=== PATIENT | female | born 1980 | race Caucasian/White ===

== ENCOUNTER 2016-10-25 10:27 | Observation (INO) | payer MEDICAID ==
[2016-10-25] MEDS ORDERED: PHENAZOPYRIDINE HCL 200 MG TAB PO ONE (11:12)
[2016-10-25] MEDS ORDERED: ceFAZolin 2 GM/DEXTROSE 100 ML IV ONE (11:12)
[2016-10-25] MEDS ORDERED: LIDOCAINE 1% 2 ML INJ ID PRN (12:46)
[2016-10-25] MEDS ORDERED: LR 1,000 ML IV ONE (12:46)
[2016-10-25] MEDS ORDERED: BUPIVACAINE/EPI 0.5% 30 ML SDV ONE ×2 (14:44→15:18)
--- NOTE | 2016-10-25 15:13 | PDGENHP ---
History and Physical History and Physical: Assessment and Plan: 1. Dysmenorrhea Julianne's symptoms are highly suggestive of endometriosis. We reviewed all conservative and surgical options. She is not able to tolerate hormonal manipulation. As a result she is requesting surgical intervention. She and her never desire children. As a result she will be scheduled for robotic excision of endometriosis with likely hysterectomy. I will evaluate her upper abdomen and diaphragms given her right-sided cyclic shoulder pain for diaphragmatic endometriosis which will be excised as well. I also will excise all bowel lesions given her significant bowel symptoms. 2. Dyspareunia, female 3. Dyschezia 4. Menorrhagia with regular cycle 5. Endometriosis of pelvis Subjective: Patient ID: Julianne Garcia is a 36 y.o. female who [facility] to [facility] for pelvic pain. HERB Whitaker presents with her to discuss pelvic pain. She is a 36-year-old para 0 woman. She has a long history of dysmenorrhea and dyspareunia. Her cycles are slightly irregular, from 23-40 days. She has a heavy flow having to change a menstrual cup or large tampon every 1-2 hours. She develops severe cramping just before starting her menses. It is in the mid abdomen and pelvis and radiates down her anterior thighs and rectum. She describes it as a severe cramping sensation that comes and goes in waves with a stabbing sensation as well. It has slowly worsened over time. She has lost several jobs due to her need to stay home secondary to pain. Additionally she has constipation several days before starting her menses then it switches to diarrhea with her menses. Finally she notes right sided shoulder and upper arm pain which typically occurs midcycle in a cyclic fashion. She also has dyschezia but not every time. She has tried multiple control pills which causes her to feel "crazy ". Currently she was on a progesterone only pill which she also did not tolerate. She went to the resident gynecology clinic last year. They attempted to place a Mirena IUD without success. She lives in [place]. She recently saw a doctor Joon Escalante who had initially scheduled her for laparoscopy in June. PastMedicalHistory Past Medical History: Diagnosis Date Anxiety Pelvic pain in female Premenstrual dysphoric disorder PastSurgicalHistory Past Surgical History: Procedure Laterality Date BREAST SURGERY Left Cyst removal CYST REMOVAL 2006 Axilla cyst SINUS SURGERY 2008 TYMPANOSTOMY TUBE PLACEMENT As a child CURRENT MEDICATIONS: Current Outpatient Prescriptions Medication Sig ASCORBATE CALCIUM (VITAMIN C PO) CALCIUM PO CHOLECALCIFEROL, VITAMIN D3, (VITAMIN D3 PO) DOCOSAHEXANOIC ACID/EPA (FISH OIL PO) FLUoxetine (PROZAC) 20 mg capsule Take 1 capsule by mouth daily for Anxiety with Depression. LACTOBACILLUS ACIDOPHILUS (PROBIOTIC PO) ryley, bulk, Powd MAGNESIUM GLYCINATE PO SAW PALMETTO XTR/ZINC PICOLIN (SAW PALMETTO EXTRACT PO) UNABLE TO FIND Med Name: Vitex Fruit VITAMIN B COMPLEX (STRESS B PO) Current Facility-Administered Medications Medication Dose Route Frequency Provider Last Rate Last Dose levonorgestrel (MIRENA) 20 mcg/24 hr (5 years) IUD 20 mcg 1 each Intrauterine Device Cecilia Whiting MD ALLERGIES: Tetracycline and Minocycline I have reviewed, verified and agree with the past medical, surgical, , family, social and ROS history as documented by the RN today. Review of Systems Objective: Vital Signs: Visit Vitals BP 120/66 Pulse 61 Temp 36.6 C (97.8 F) (Temporal Artery) Resp 14 Ht 1.664 m (5' 5.5") Wt 65.4 kg (144 lb 3.2 oz) SpO2 99% BMI 23.63 kg/m2 Physical Exam DATA: I have reviewed patient's outside medical records. Summary findings include as noted above. TIME/COMMUNICATION: I personally spent a total of 60 minutes. Of that 45 minutes was counseling/ coordination of patient's care. See my note above for details. Odilon Costa MD Board Certified Female Pelvic Medicine and Reconstructive Surgery Director of Minimally Invasive Gynecologic Surgery, [facility] Minimally Invasive Gynecologic Surgery Designee
--- NOTE | 2016-10-25 15:20 | PDANEPAE ---
ANE Past Medical History - Cardiovascular History Hx Hypertension: No Hx Arrhythmias: No Hx Chest Pain: No Hx Coronary Artery / Peripheral Vascular Disease: No Hx CHF / Valvular Disease: No Hx Palpitations: No - Pulmonary History Hx COPD: No Hx Asthma/Reactive Airway Disease: No Hx Recent Upper Respiratory Infection: No Hx Oxygen in Use at Home: No Hx Sleep Apnea: No Sleep Apnea Screening Result - Last Documented: Negative - Neurologic History Hx Cerebrovascular Accident: No Hx Seizures: No Hx Dementia: No - Endocrine History Hx Diabetes: No Endocrine History Comment: BORDERLINE HYPOTHYROID - Renal History Hx Renal Disorders: No - Liver History Hx Hepatic Disorders: No - Neurological & Psychiatric Hx Hx Neurological and Psychiatric Disorders: Yes Neurological / Psychiatric History Comment: ANXIETY - Cancer History Hx Cancer: No - Congenital Disorder History Hx Congenital Disorders: No - GI History Hx Gastrointestinal Disorders: No - Other Health History Other Health History: SEVERE PELVIC DISCOMFORT WITH MENSES - Chronic Pain History Chronic Pain: Yes (PELVIC REGION WITH MENSES) - Surgical History Prior Surgeries: REMVL CYST LT UNDER ARM. SINUS 2009 ANE Review of Systems - Exercise capacity METS (RN): 5 METS ANE Patient History - Allergies Allergies/Adverse Reactions: aspirin Allergy (Verified 09/28/16 12:00) GI ISSUES minocycline Allergy (Verified 09/28/16 12:00) Hives - Home Medications Home Medications: Calcium [HI-CHERY] 1,200 mg PO DAILY 09/28/16 [Last Taken 10/21/16] Cholecalciferol Vit D3 [Vitamin D3 (*)] 5,000 units PO MOWEFR 09/28/16 [Last Taken 10/21/16] FLUoxetine [Prozac 20 MG (*)] 20 mg PO Q2D 09/28/16 [Last Taken 10/25/16 07:30] Magnesium Oxide [Magnesium] 400 mg PO DAILY 09/28/16 [Last Taken 10/21/16] Vitamin B Complex [B Complex] 1 each PO DAILY 09/28/16 [Last Taken 10/21/16] - NPO status NPO Since - Liquids (Date): 10/25/16 NPO Since - Liquids (Time): 08:00 NPO Since - Solids (Date): 10/24/16 NPO Since - Solids (Time): 21:00 - Smoking Hx Smoking Status: Never smoked ANE Labs/Vital Signs - Vital Signs Blood Pressure: 106/73 Heart Rate: 63 Respiratory Rate: 14 O2 Sat (%): 99 Height: 167.64 cm Weight: 63.503 kg ANE Physical Exam - Airway Mallampati Score: Class 2 - ASA Status ASA Status: II ANE Anesthesia Plan Anesthesia Plan: general endotracheal anesthesia
[2016-10-25] MEDS ORDERED: MIDAZOLAM 2 MG/2 ML VIAL ONE (15:22)
[2016-10-25] MEDS ORDERED: PROPOFOL 200 MG/20 ML VIAL ONE (15:23)
[2016-10-25] MEDS ORDERED: fentaNYL 100 MCG/2 ML INJ ONE ×3 (15:23→18:12)
[2016-10-25] MEDS ORDERED: ONDANSETRON 4 MG/2 ML VIAL ONE ×2 (15:28→17:58)
[2016-10-25] MEDS ORDERED: METOCLOPRAMIDE 10 MG/2 ML VIAL ONE (15:28)
[2016-10-25] MEDS ORDERED: ROCURONIUM 50 MG/5 ML VIAL ONE (15:28)
[2016-10-25] MEDS ORDERED: SUGAMMADEX SODIUM 200 MG/2 ML VIAL IVP ONE (17:12)
[2016-10-25] MEDS ORDERED: ZOLPIDEM TARTRATE 5 MG TAB PO PRN (17:28)
[2016-10-25] MEDS ORDERED: HYDROCODONE/APAP 5/325 TAB PO PRN (17:28)
[2016-10-25] MEDS ORDERED: PROMETHAZINE HCL 25 MG/ML INJ IVP PRN ×2 (17:28→17:39)
[2016-10-25] MEDS ORDERED: OXYCODONE/APAP 5/325 TAB PO PRN (17:28)
[2016-10-25] MEDS ORDERED: DIAZEPAM 10 MG/2 ML SYR IVP PRN (17:28)
[2016-10-25] MEDS ORDERED: ONDANSETRON 4 MG/2 ML VIAL IVP PRN (17:28)
[2016-10-25] MEDS ORDERED: HYDROmorphONE/DILAUDID 1 MG/ML SYR IVP PRN (17:28)
[2016-10-25] MEDS ORDERED: LR 1,000 ML IV SCH (17:30)
--- NOTE | 2016-10-25 17:35 | POSTOPPROG ---
Post Op Note Date of Operation: 10/25/16 Surgeon: Odilon Costa Regional Marketing Director: Judy Burkett Anesthesiologist: Jonna Anesthesia: GET(General Endotracheal) Pre-op Diagnosis: Endometriosis Post-op Diagnosis: Same Procedure: Robotic hyst, BSO, excision of endo, bilat ureterolysis, cysto Findings: Endo Inf/Abcess present in the surg proc area at time of surgery?: No Depth: Superfical (Skin SQ) EBL: Minimal Complications: None
[2016-10-25] MEDS ORDERED: NALOXONE HCL 0.4 MG/ML INJ IVP PRN (17:39)
[2016-10-25] MEDS ORDERED: fentaNYL 100 MCG/2 ML INJ IVP PRN ×2 (17:39)
[2016-10-25] MEDS ORDERED: LR 500 ML IV PRN (17:39)
--- NOTE | 2016-10-25 17:41 | POSTANESTH ---
Post Anesthetic Evaluation Cardiovascular Status: Normal, Stable Respiratory Status: Normal, Stable Level of Consciousness/Mental Status: Can Participate in Eval Pain Control: Adequate, Prn Tx Ordered Nausea/Vomiting Control: Adequate, Prn Tx Ordered Complications Possibly Related to Anesthesia: None Noted
--- NOTE | 2016-10-25 21:46 | GOP ---
[f rep st] OPERATIVE REPORT DATE OF OPERATION: 10/25/2016 SURGEON: Odilon Costa MD PERSONAL SERVICE REPRESENTATIVE: Judy Burkett CFA ANESTHESIA: General. PREOPERATIVE DIAGNOSIS: 1. Dysmenorrhea. 2. Menorrhagia. 3. Pelvic pain. 4. Probable endometriosis. 5. Dyschezia. 6. Urinary frequency. 7. Cyclic chest pain. 8. Uterine prolapse. POSTOPERATIVE DIAGNOSIS: 1. Dysmenorrhea. 2. Menorrhagia. 3. Pelvic pain. 4. Probable endometriosis. 5. Dyschezia. 6. Urinary frequency. 7. Cyclic chest pain. 8. Uterine prolapse. 9. Extensive endometriosis. PROCEDURE PERFORMED: FINDINGS: SPECIMENS: Uterus, bilateral tubes, and ovaries, pelvic peritoneum with endometriosis, rectal lesio ns. ESTIMATED BLOOD LOSS: Less than 25 mL. DESCRIPTION OF PROCEDURE: The patient was taken to the operating room. She was identified. Genera l anesthesia was administered and found to be adequate. She was placed in the lithotomy position an d prepared and draped in normal sterile fashion. A Yooliare uterine manipulator was placed into the en dometrial cavity and sutured to the cervix. A Weaver catheter was then placed. A 1 cm intra umbilical incision was made with a scalpel. The Veress needle with CO2 gas line was ad vanced into the peritoneal cavity. The abdomen was then insufflated with carbon dioxide gas. The 1 2 mm trocar followed by the laparoscope were then inserted. The upper abdomen was examined. There were several lesions on the right diaphragm which were concerning for endometriosis. They were very small. I chose to fulgurate them rather than excised them. This was accomplished with the monopol ar scissors. 2 lateral ports were placed on the right and 1 left under direct visualization. The p atient was then placed in Trendelenburg position and the da Tammy robot docked on the left side. Th e instruments were then brought into the abdominal cavity under direct visualization. The patient h ad extensive endometriosis in the posterior cul-de-sac, bilateral ovarian fossa, and distal rectum. She also had extensive endometriosis on the lower uterine segment and posterior cervix. She had 2 areas in the anterior cul-de-sac, 1 on either side. She also lesions on the ovaries. I first excis ed the lesions on the distal rectum. They extended approximately half way through the muscularis. The entire posterior cul-de-sac peritoneum was excised from the distal rectum extending up over the cervix and laterally out to the uterosacral ligaments. Because of the endometriosis in the ovarian fossae overlying the ureters, a bilateral ureterolysis was required. The peritoneum at the pelvic b rims were incised. The ureters were gently dissected free. The ureters were lateralized and separa otto off the overlying peritoneum endometriosis all the way down to the bladder bilaterally. Once th is was accomplished, the entire ovarian fossa peritoneum was completely excised. The left round ligament was divided. The anterior leaf of the broad ligament was incised to the bif urcation of the left common iliac vessels. The infundibulopelvic vessels were then cauterized and t ransected. The anterior leaf of the broad ligament was incised over the left uterine vessels and ac ross the upper vagina to excise the anterior cul-de-sac peritoneum endometriosis. The left uterine vasculature was then cauterized and transected medial to the already dissected out left ureter. The exact same procedure was performed on the patient's right side. A circumferential colpotomy incisi on was then made with the hot reina and all specimens were removed through the vagina. The vagina was closed with a running 0 V-Loc 180 suture. A bilateral uterosacral ligament colpopexy was perfor med by attaching the lateral aspect of the vaginal cuff to the ipsilateral uterosacral ligaments yuriy r their insertion into the coccygeus-sacrospinous ligament complexes. The pelvis was then copiously irrigated with sterile saline and hemostasis was present. The robot was then undocked. The fascia was closed with 0 Vicryl, skin with 4-0 Monocryl and surgical adhesive. Cystoscopy was then performed. Both ureters had vigorous jets of urine. There was no evidence of b ladder or urethral injury seen. The patient did have 3 small Hunner's ulcers explaining her urinary frequency symptoms. Anesthesia was reversed. The patient was taken the PACU, awake, and in stable condition. PROCEDURES: 1. Robotic-assisted total laparoscopic hysterectomy, bilateral salpingo-oophorectomy. 2. Robotic excision of extensive endometriosis. 3. Bilateral ureterolysis. 4. Excision of several rectal lesions. 5. Fulguration of diaphragm lesions. 6. Bilateral uterosacral ligament colpopexy. 7. Cystoscopy. COMPLICATIONS: None. DISPOSITION: Patient stable to PACU. /[id number]/MODL
[2016-10-25] MEDS: SIMETHICONE 80 MG TAB CHEW PO SCH ×2 (22:08→22:41)
[2016-10-25] MEDS: DOCUSATE SODIUM 100 MG CAP PO SCH (22:08)
[2016-10-25] MEDS: KETOROLAC 30 MG/1 ML SDV IVP SCH (23:29)
[2016-10-25] MEDS ORDERED: ACETAMINOPHEN 325 MG TAB PO PRN (23:52)
[2016-10-26] MEDS: KETOROLAC 30 MG/1 ML SDV IVP SCH ×2 (05:32→10:37)
[2016-10-26 06:00] LABS: % IMMATURE GRANULYOCYTES 0.4 % (0.0-1.1); ABSOLUTE IMMATURE GRANULOCYTES 0.04 10^3/uL (0.00-0.10); ADD DIFF? NO; ADD MORPH? NO; ADD SCAN? NO; ATYPICAL LYMPHOCYTE FLAG 0 (0-99); FRAGMENT RBC FLAG 0 (0-99); HEMATOCRIT 32.6 % (38.0-47.0); HEMOGLOBIN 10.8 g/dL (12.6-16.3); LEFT SHIFT FLG 0 (0-99); LIPEMIA HEMOLYSIS FLAG 80 (0-99); MEAN CELL HEMOGLOBIN 32.1 pg (27.9-34.1); MEAN CELL HEMOGLOBIN CONCENTR. 33.1 g/dL (32.4-36.7); MEAN PLATELET VOLUME 10.3 fL (8.7-11.7); PLATELET CLUMPS FLAG 0 (0-99); PLATELET COUNT 165 10^3/uL (150-400); RED BLOOD CELL COUNT 3.36 10^6/uL (4.18-5.33); RED CELL DISTRIBUTION WIDTH 12.6 % (11.5-15.2)
[2016-10-26 08:38] VITALS: BP 97/52; PULSE 75; RESP 17; TEMP 97.7; O2SAT 96
[2016-10-26] MEDS ORDERED: MAGNESIUM OXIDE 400 MG TAB PO SCH (09:00)
[2016-10-26] MEDS: DOCUSATE SODIUM 100 MG CAP PO SCH (10:32)
[2016-10-26] MEDS: SIMETHICONE 80 MG TAB CHEW PO SCH (10:32)
--- NOTE | 2016-10-26 19:01 | GDS ---
[f rep st] DISCHARGE SUMMARY DISCHARGE DIAGNOSIS: 1. Dysmenorrhea. 2. Dyspareunia. 3. Pelvic pain. 4. Endometriosis. PROCEDURES PERFORMED: 1. Robotic-assisted total laparoscopic hysterectomy, bilateral salpingo-oophorectomy. 2. Robotic excision of extensive endometriosis. 3. Bilateral ureterolysis. 4. Excision of rectal lesions. 5. Uterosacral ligament colpopexy. 6. Fulguration of diaphragmatic lesions. 7. Cystoscopy. HISTORY: The patient is a 36-year-old female with a long history of pelvic pain, dysmenorrhea, and dyspareunia. She was taken to the operating room on 10/25/2016 where she underwent the above proced ures without complications. Her postoperative course was uneventful. The morning after surgery, reina shankar was ambulating, voiding, and tolerating a general diet. DISPOSITION: She was discharged home on postoperative day #1 in good condition. DISCHARGE MEDICATIONS: Included ibuprofen and Percocet for pain. She also was started on estradiol 1 mg and norethindrone 5 mg for hormone replacement. FOLLOWUP: She is to follow up in the office several weeks after discharge. /[id number]/MODL
[2016-10-27] MEDS ORDERED: FLUoxetine 20 MG CAP PO SCH (09:00)
== END 2016-10-26 10:50 | disposition home or self-care (01) ==
LOC: F3E 10:46 → FOB 19:06
PROVIDERS: ADMIT Obstetrics & Gynecology; ATTEND Obstetrics & Gynecology
PROC: 0U5F4ZZ Destruction of Cul-de-sac, Percutaneous Endoscopic Approach (ICD-10-PCS; principal; 2016-10-25 13:45)
PROC: 0UT9FZZ Resection of Uterus, Via Natural or Artificial Opening With Percutaneous Endoscopic Assistance (ICD-10-PCS; principal; 2016-10-25 13:45)
PROC: 0DBP4ZX Excision of Rectum, Percutaneous Endoscopic Approach, Diagnostic (ICD-10-PCS; principal; 2016-10-25 13:45)
PROC: 0UT7FZZ Resection of Bilateral Fallopian Tubes, Via Natural or Artificial Opening With Percutaneous Endoscopic Assistance (ICD-10-PCS; principal; 2016-10-25 13:45)
PROC: 8E0W8CZ Robotic Assisted Procedure of Trunk Region, Via Natural or Artificial Opening Endoscopic (ICD-10-PCS; principal; 2016-10-25 13:45)
PROC: 0UTC8ZZ Resection of Cervix, Via Natural or Artificial Opening Endoscopic (ICD-10-PCS; principal; 2016-10-25 13:45)
PROC: 0UUG4JZ Supplement Vagina with Synthetic Substitute, Percutaneous Endoscopic Approach (ICD-10-PCS; principal; 2016-10-25 13:45)
PROC: 0UT2FZZ Resection of Bilateral Ovaries, Via Natural or Artificial Opening With Percutaneous Endoscopic Assistance (ICD-10-PCS; principal; 2016-10-25 13:45)
DX: N80.3 Endometriosis of pelvic peritoneum (principal); N80.1 Endometriosis of ovary; N80.5 Endometriosis of intestine; N94.6 Dysmenorrhea, unspecified; R10.2 Pelvic and perineal pain; N94.10 Unspecified dyspareunia; N92.0 Excessive and frequent menstruation with regular cycle; R35.0 Frequency of micturition; N81.4 Uterovaginal prolapse, unspecified; D25.9 Leiomyoma of uterus, unspecified
CPT/HCPCS: 57425; 58571; 58662; G0378; J0690; J1885; J2250; J2405; J2550; J2704; J2765; J3010